=== PATIENT | male | born 1995 | race African-American/Black ===

== ENCOUNTER 2018-03-11 00:23 | Emergency (ER) | payer OTHER ==
[~2018-03-11] VITALS: Ht 172.7 cm; Wt 62.7 kg
[2018-03-11 00:28] VITALS: BP 133/87; TEMP 97.7
[2018-03-11] MEDS ORDERED: DECADRON PO (00:58)
[2018-03-11 01:32] VITALS: PULSE 70
== END 2018-03-11 01:32 | disposition home or self-care (01) ==
LOC: COL.ER 00:23
DX: L29.9 Pruritus, unspecified (principal)
CPT/HCPCS: J1100

== ENCOUNTER 2018-05-17 17:55 | Emergency (ER) | payer OTHER ==
[~2018-05-17] VITALS: Ht 170.2 cm; Wt 61.8 kg
[~2018-05-17 17:55] MED LIST: DECADRON PO
[2018-05-17 18:07] VITALS: BP 134/71; PULSE 70; TEMP 98.1
[2018-05-17] MEDS ORDERED: MEDROL 4MG DOSPA4 MG PO (18:26)
== END 2018-05-17 18:42 | disposition home or self-care (01) ==
LOC: COL.ER 17:55
DX: R20.2 Paresthesia of skin (principal)

== ENCOUNTER 2019-01-05 18:58 | Emergency (ER) | payer OTHER ==
[~2019-01-05] VITALS: Ht 172.7 cm; Wt 61.8 kg
[~2019-01-05 18:58] MED LIST changes: +MEDROL 4MG DOSPA4 MG PO
[2019-01-05 19:08] VITALS: BP 122/77; TEMP 98.3
[2019-01-05] MEDS ORDERED: NORCO 325 MG-51 TAB PO (21:59)
[2019-01-05] MEDS ORDERED: NORFLEX 10100 MG/TAB PO (21:59)
[2019-01-05 22:09] VITALS: PULSE 67
== END 2019-01-05 22:09 | disposition home or self-care (01) ==
LOC: COL.ER 18:58
DX: S29.012A Strain of muscle and tendon of back wall of thorax, initial encounter (principal); S39.012A Strain of muscle, fascia and tendon of lower back, initial encounter; Z88.8 Allergy status to other drugs, medicaments and biological substances; Z88.6 Allergy status to analgesic agent; V89.2XXA Person injured in unspecified motor-vehicle accident, traffic, initial encounter
CPT/HCPCS: J1885

== ENCOUNTER 2019-09-25 14:54 | Emergency (ER) | payer SELFPAY ==
[~2019-09-25] VITALS: Ht 172.7 cm; Wt 62.7 kg
[~2019-09-25 14:54] MED LIST changes: +NORCO 325 MG-51 TAB PO; +NORFLEX 10100 MG/TAB PO
[2019-09-25 15:03] VITALS: TEMP 98.4
[2019-09-25 17:00] VITALS: BP 136/100; PULSE 55
== END 2019-09-25 17:10 | disposition home or self-care (01) ==
LOC: COL.ER 14:54
DX: R07.89 Other chest pain (principal)

== ENCOUNTER 2019-11-04 11:02 | Emergency (ER) | payer OTHER ==
[~2019-11-04] VITALS: Ht 172.7 cm; Wt 64.5 kg
[2019-11-04 11:24] VITALS: BP 119/73; TEMP 98.1
[2019-11-04] MEDS ORDERED: NAPROSYN500 MG PO (11:46)
[2019-11-04] MEDS ORDERED: MOTRIN 800800 MG/TAB PO (11:47)
[2019-11-04] MEDS ORDERED: FLEXERIL 1010 MG/TAB PO (12:28)
[2019-11-04] MEDS ORDERED: LIDODERM 5% PATC1 EA TP (12:28)
[2019-11-04 12:50] VITALS: PULSE 69
== END 2019-11-04 12:50 | disposition home or self-care (01) ==
LOC: COL.ER 11:02
DX: M54.5 Low back pain (principal); G89.29 Other chronic pain